=== PATIENT | female | born 2005 | race Hispanic/Latino ===

== ENCOUNTER 2025-01-25 09:40 | Emergency (ER) | payer BC ==
[~2025-01-25] VITALS: Ht 170.2 cm; Wt 61.7 kg
[2025-01-25 09:45] VITALS: PULSE 120; RESP 20; TEMP 99.3; O2SAT 97
[2025-01-25] MEDS ORDERED: IBUPROFEN600 MG PO (10:09)
[2025-01-25] MEDS ORDERED: AMOXICILLIN875 MG PO (10:09)
[2025-01-25] MEDS ORDERED: AZITHROMYCIN 250 MG TAB PO ONE (10:15)
[2025-01-25] MEDS: AMOXICILLIN/CLAVULANATE K 875 MG TAB PO STA (10:17)
[2025-01-25] MEDS: IBUPROFEN 600 MG TAB PO STA (10:17)
== END 2025-01-25 10:21 | disposition home or self-care (01) ==
LOC: FSED 09:46
DX: J02.0 Streptococcal pharyngitis (principal); H92.02 Otalgia, left ear; M54.9 Dorsalgia, unspecified; Z11.52 Encounter for screening for COVID-19
CPT/HCPCS: 0223U; 83518; 87400; 99284